=== PATIENT | male | born 1950 | race Caucasian/White ===

== ENCOUNTER → 2023-04-20 13:54 | Outpatient (CLI) | payer MEDICARE, SELFPAY ==
--- NOTE | 2023-04-20 13:56 | DI.RAD.S_ITS ---
PROCEDURE: XR KUB INDICATIONS: Kidney stones TECHNIQUE: One view of the abdomen acquired. COMPARISON: [facility], , US RENAL, 01/24/2023, 16:24. FINDINGS: Surgical changes and devices: Cholecystectomy clips. Bowel: There are occasional air-fluid levels in nondilated bowel loops. There is a normal amount of stool in the transverse colon overlying renal shadows. No significant rectal obstipation. No dilated small bowel loops. Soft tissues: Questionable tiny calcification projecting over the expected location of the left kidney. No significant retroperitoneal or pelvic calcifications. No suspicious abdominal calcifications. Visualized solid organ contours appear normal in size. Bones: Moderate levoscoliosis and degenerative endplate spurring. IMPRESSION: 1. Questionable left lower pole renal calculus versus stool contents. 2. No significant urinary calcification identified though one could potentially be obscured by stool. Dictated by: Nancy Hammond M.D. on 04/20/2023 at 23:41 Approved by: Nancy Hammond M.D. on 04/20/2023 at 23:44
== END ==
PROVIDERS: PCP Family Medicine; Referring Provider Urology; Visit Provider Urology
DX: N20.0 Calculus of kidney (principal); R39.9 Unspecified symptoms and signs involving the genitourinary system; R39.14 Feeling of incomplete bladder emptying; Z87.442 Personal history of urinary calculi
CPT/HCPCS: 51798; 74018; 99213

== ENCOUNTER 2023-07-31 07:40 | Day surgery (SDC) | payer MEDICARE, SELFPAY ==
[2023-07-30 12:31] VITALS: BMI 30.9
[2023-07-31 08:18] VITALS: BMI 30.9
--- NOTE | 2023-07-31 08:23 | PM.PREOP ---
Pre-operative Note COVID-19 COVID-19 status: Not tested Interval Note History & Physical reviewed/Exam performed by Physician: Yes Changes to H&P: No
[2023-07-31] MEDS: LACTATED RINGERS 1,000 ML 21 ML IV (08:29)
[2023-07-31] MEDS: CEFAZOLIN 2 GM/100 ML PREMIX 100 ML IV (08:48)
--- NOTE | 2023-07-31 09:08 | SUR.OPER ---
Addendum entered by Anette Berg R.N. 07/31/23 09:09: Several warm blankets place on patient intraoperative for warming. Original Note: Lithotomy on padded OR bed, head on pillow, arms secured on padded arm boards at <90 degrees abduction. Legs secured in padded yellow fins stirrups.
--- NOTE | 2023-07-31 09:36 | P.OP_ITS ---
Procedure & Clinicians Procedure: Left extracorporeal shockwave lithotripsy with cystoscopy and left ureteral stent placement. Same procedure as scheduled: Yes Indications: This 72-year-old gentleman presented with complaints of hematuria was found to have a left-sided stone and presents this time for treatment of his left-sided stone. Surgeon: Lb Razo Click Yes if Unassisted: Yes Anesthesia Type: General Operative Notes Findings: Findings: Urethral meatus is normal, urethra is normal along its length with no rmal mucosa sphincter as well coapted, the prostate exhibits moderate obstructive character. Ureteral orifices in normal position with clear efflux. The bladder exhibits moderate trabeculation. There are no other mucosal lesions. The 7 [place] by multi length stent was left in good position with no string attached. There were no other abnormalities noted. The stone received 2000 shocks at level 7 and appeared to fragment quite well. Closure Type: not applicable Specimen(s): none sent Prosthetic devices, grafts, tissues, transplants, or devices: Seven [place] by multi length stent left collecting system no string Estimated Blood Loss (mL): 0 Procedure in detail: Procedure in detail: After informed consent was obtained, the patient was identified and brought to the operating room worries placed in supine position on the operative table. Patient then had anesthesia induced and maintained. Ensuring an adequate level of and anesthesia the patient was then transitioned to the lithotomy position where he was prepped, draped, prepared for Transurethral procedure. Ensuring an adequate level of anesthesia after prepping draping and time-out 22 [place] cystoscope was passed through the uret hra prostate and in the bladder were cystoscopy is performed. The left ureteral orifice once again identified and a hybrid wire was then passed up in the collecting system under fluoroscopic visualization. The stent was then passed over the wire and a coaxial fashion position in the renal pelvis under fluoroscopic visualization in the bladder under direct vision and the wire was removed. The grasping forceps was then inserted and the nylon harness remove the stent being left in good position. The bladder was drained the scope was removed and the stone was targeted via the imaging system were shockwave were delivered at level 7 with periodic reimaging and re localization to ensure maximal energy delivery to the stone. At 2000 shock waves the shockwave head was rotated out fluoroscopy was performed and the stone appeared well fragmented. At this point the patient was awakened having tolerated procedure well to be transferred to the postanesthesia care unit for recovery there were n o complications. Complications: none Post-operative Condition: stable Disposition: PACU Plan for aftercare: Patient is to be discharged to home to follow up in my office in 10-14 days with a KUB patient is to strain his urine and save any fragments and bring them to follow-up.
[2023-07-31 09:37] VITALS: BP 134/80; PULSE 88; RESP 15; TEMP 36.6; O2SAT 91
[2023-07-31 09:42] VITALS: BP 132/87; PULSE 83; RESP 18; O2SAT 94
[2023-07-31 09:47] VITALS: BP 135/88; PULSE 81; RESP 15; O2SAT 92
[2023-07-31 09:52] VITALS: BP 136/84; PULSE 78; RESP 11; O2SAT 92
--- NOTE | 2023-07-31 09:53 | SUR.PHASEI ---
IS provided, instructions given. Patient able to reach 2500mls.
[2023-07-31 09:58] VITALS: BP 135/77; PULSE 76; RESP 16; TEMP 36.6; O2SAT 93
== END 2023-07-31 10:12 | disposition home or self-care (01) ==
PROVIDERS: PCP Family Medicine; Referring Provider Urology; Visit Provider Urology
PROC: (CPT 50590; principal; 2023-07-31 09:15)
PROC: (CPT 50590; 2023-07-31 09:15)
DX: N20.1 Calculus of ureter (principal)
CPT/HCPCS: 50590; 52332; J0690; J1100; J2405; J2704; J3010

== ENCOUNTER → 2023-08-15 11:36 | Outpatient (CLI) | payer MEDICARE, SELFPAY ==
[2023-08-15 16:49] LABS: Appearance Urine UA CLEAR; Bilirubin Urine UA NEGATIVE (NEGATIVE); Color Urine UA YELLOW; Glucose Urine UA NEGATIVE (Negative); Ketones Urine UA NEGATIVE (NEGATIVE); Leukocyte Esterase Urine UA TRACE (NEGATIVE); Nitrite Urine UA NEGATIVE (Negative); Occult Blood Urine UA 3+ (Negative); Protein Urine UA 2+ (Negative); Urobilinogen Urine UA 0.2 E.U./dL (0.2); pH Urine UA 5.5 (4.5-8.0)
[2023-08-15 16:57] LABS: Bacteria Urine Few (2-10); Culture Indicated Urine Specimen Cultured; RBC Urine 30-100/HPF (0-5/HPF); Squamous Epithelial Cell Urine 1-5 /HPF (0-5/HPF); WBC Urine 1-5/HPF (0-5/HPF)
[2023-08-24 12:06] LABS: Ca oxalate monohydr 20 % (.); Carbonate Apatite 10 % (.); Magnesium ammon phos 70 % (.); Size <1 mm (.)
== END ==
PROVIDERS: PCP Family Medicine; Visit Provider Urology
DX: N20.0 Calculus of kidney (principal); R30.0 Dysuria; R39.14 Feeling of incomplete bladder emptying; R39.9 Unspecified symptoms and signs involving the genitourinary system; Z87.442 Personal history of urinary calculi; Z98.890 Other specified postprocedural states
CPT/HCPCS: 81001; 81002; 82365; 87086

== ENCOUNTER → 2023-08-29 09:58 | Outpatient (CLI) | payer MEDICARE, SELFPAY | PROVIDERS: PCP Family Medicine; Visit Provider Urology | DX: N20.0 Calculus of kidney (principal); R39.14 Feeling of incomplete bladder emptying; R39.9 Unspecified symptoms and signs involving the genitourinary system; Z98.890 Other specified postprocedural states | CPT/HCPCS: 52310; 81002; 87077; 87086; 87185; 87186 ==

== ENCOUNTER 2024-08-21 08:07 | Outpatient (CLI) | payer MEDICARE, SELFPAY ==
[2024-08-21] VITALS (7 sets, daily range): BP systolic 134–151; BP diastolic 82–94; PULSE 84–88; RESP 12–22; TEMP 36.6; O2SAT 96–98
--- NOTE | 2024-08-21 08:45 | DI.RAD.S_ITS ---
PROCEDURE: PAIN L INTERLAMINAR/CAUDAL INJ INDICATIONS: PARA RIGHT L 4/5 TL HAZEL COMPARISON: None. FINDINGS: Fluoroscopic spot filming was performed to verify placement of spinal needles at the L4-5 level(s), as labeled on the films. Appropriate location(s) of the needle tip(s) was confirmed by injection of iodinated contrast. IMPRESSION: Fluoro guidance was provided intraoperatively for right L4-5 TL HAZEL performed by ordering physician. Dictated by: Mike Mckeon M.D. on 08/21/2024 at 16:34 Approved by: Mike Mckeon M.D. on 08/21/2024 at 16:35
[2024-08-21] MEDS: MIDAZOLAM 2 MG/2 ML VIAL 1 MG IV (09:59)
[2024-08-21] MEDS: BETAMETHASONE 30 MG/5 ML MDV 12 MG INJ (10:04)
[2024-08-21] MEDS: DEXAMETHASONE 10 MG/ML VIAL INJ (10:04)
[2024-08-21] MEDS: iopamidoL 15 ML VIAL 3 ML INJ (10:05)
[2024-08-21] MEDS: BUPIVACAINE 0.25% (PF) VIAL 2 ML INJ (10:05)
--- NOTE | 2024-08-21 10:10 | P.PCN_ITS ---
Date/Time/Diagnoses Date of procedure: 08/21/24 Time of procedure: 10:10 Pre-procedure diagnosis: 1. HNP WITH RADICULAR FEATURES, 2. MULTILEVEL CENTRAL STENOSIS, Post-procedure diagnosis: same Procedure Notes Procedure: 1. FLUOROSCOPICALLY GUIDED CONTRAST CONTROLLED INTERLAMINAR EPIDURAL STEROID INJECTION -L4/5 Indications: Patrick is referred by Dr. Back for treatment of Bilateral Foraminal Stenosis R>L LE symptoms. Physician: Dhaval Peter Total Fluoroscopy time (seconds): 10 Total sedation minutes: 7 Complications: none Procedure in detail & Post-procedure care: FINDINGS Multilevel Central Spinal Stenosis with Nerve Root Compression DESCRIPTION OF PROCEDURE Fluoroscopically guided, contrast-controlled L4/5 translaminar epidural steroid injection. Following review of allergy and review of potential side effects and complications, including, but not necessarily limited to, infection, allergic reaction, local tissue breakdown, temporary as well as permanent nerve injury, paralysis, stroke and possible , the patient indicated that the patient understood and agreed to proceed. An informed consent document was signed by the patient, witnessed by a nurse, and placed in the patient's chart. Additionally, other treatment options including modalities, medications, and physical therapy were reviewed with the patient. After review of previous anaesthesic history and IV conscious sedation the patient was deemed safe to proceed with today?s procedure with IV conscious sedation as ASA class II designation. Safety time-out was performed to confirm patient ID, procedure to be performed and site of procedure. IV sedation was accomplished with a combination of 1mg of Versed was administered by the RN after DO order, titrated to patient comfort during the course of the procedure while the patient remained responsive to all verbal commands In the prone position, following sterile prep and drape of the lumbar region, the L4/5 translaminar space was identified fluoroscopically. The skin was anesthetized via a 25-gauge, 1.5inch needle with 1% lidocaine solution. At this point, a 22-gauge short bevel spinal needle was atraumatically introduced and ad vanced under fluoroscopic guidance into the region of the L4/5 translaminar space. Depth was confirmed on lateral view. Radiological data, including multiple fluoroscopic views of the lumbar spine, reveal a spinal needle at the L4/5 translaminar space. Lateral views then show placement of the needle in the epidural space. Subsequent views show contrast material flowing superiorly and inferiorly in the epidural space. No vascular or intrathecal uptake is observed. At this point, using loss of resistance technique with saline and air, the epidural space was entered. This was confirmed following negative aspiration with injection of approximately 1.5cc of Isovue 200, showing excellent epidural flow without vascular or intrathecal uptake. At this point, 1cc of 1% lidocaine solution combined with 2cc or 10mg of dexamethasone and 6mg betamethasone was injected without incident. The patient tolerated the procedure well without signs or symptoms of complications prior to transfer to the recovery area continued monitoring without incident. The patient was then transferred to the recovery area where they were observed for an appropriate period of time after the injection. The patient reported a VAS score of 6 prior to the procedure and a post- procedure VAS of 0. POST OP INSTRUCTIONS The patient was provided a Pain Log to continue to record their response to the target-specific procedure prior to follow-up visit with their referring physician. Additionally, specific post-injection care instructions and a contact number to our office were provided if concerns arise regarding possible complications associated with the procedure are suspected.
--- NOTE | 2024-08-21 10:41 | P.PCN_ITS ---
Date/Time/Diagnoses Date of procedure: 08/21/24 Time of procedure: 10:41 Pre-procedure diagnosis: 1. CERVICAL STENOSIS, 2. CERVICAL HNP WITH UPPER EXTREMITY RADICULAR FEATURES Post-procedure diagnosis: same Procedure Notes Procedure: 1. FLUORSCOPICALLY GUIDED CONTRAST CONTROLLED INTERLAMINAR EPIDURAL STEROID INJECTION - C6/7 TL HAZEL Indications: Patrick is referred by Dr. Back for treatment of Cervical HNP with Upper Extremity Paresthesias. Physician: Dhaval Peter Total Fluoroscopy time (seconds): 21 Total sedation minutes: 14 Complications: none Procedure in detail & Post-procedure care: FINDINGS Cervical Stenosis due to disc deterioration and nerve root irritation and nerve root irritation DESCRIPTION OF PROCEDURE Fluoroscopically guided, contrast-controlled C6/7 translaminar epidural steroid injection with conscious sedation. Following review of allergy and review of potential side effects and complications, including, but not necessarily limited to, infection, allergic reaction, local tissue breakdown, temporary as well as permanent nerve injury, stroke, paralysis, and possible , the patient indicated that patient understood and agreed to proceed. An informed consent document was signed by the patient, witnessed by a nurse, and placed in the patient's chart. Additionally, other treatment options including modalities, medications, and physical therapy were reviewed with the patient. After review of previous anaesthesic history and IV conscious sedation the patient was deemed safe to proceed with today?s procedure with IV conscious sedation as ASA class II designation. Safety time-out was performed to confirm patient ID, procedure to be performed and site of procedure. IV sedation was accomplished with a combination of 2mg of Versed administered by the RN after DO order, titrated to patient comfort during the course of the procedure while the patient remained responsive to all verbal commands. In the prone position, following sterile prep and drape of the cervical region, the C6/7 translaminar space was identified fluoroscopically. The skin was anesthetized via a 25-gauge 1.5-inch needle with 1% lidocaine solution. At this point, a 25-gauge, 2.5-inch short bevel spinal needle was atraumatically introduced and advanced under fluoroscopic guidance into epidural space at the C6/7 translaminar space. Depth was confirmed on lateral view. Radiological data, including multiple fluoroscopic views of the cervical spine, reveal a spinal needle at the C6/7 translaminar space. Lateral views then show placement of the needle in the epidural space. Subsequent views show contrast material flowing superiorly and inferiorly in the epidural space. DSA fluoroscopy with live contrast injection, once again, confirmed no vascular or intrathecal uptake. At this point, using loss of resistance technique with saline and air, the epidural space was entered. Following negative aspiration, injection of approximately 1.5 cc of Isovue-200 with live fluoroscopy in the AP view confirmed epidural flow in the epidural space without vascular or intrathecal uptake observed. Subsequently, a test dose of 1 cc of 1% lidocaine solution was injected and patient was observed for two minutes without signs or symptoms of complications, including abdominal pain, shortness of breath, bilateral upper or lower extremity weakness, nausea and vomiting, prior to steroid injection. At this point, 2cc or 20mg of dexamethasone was then injected without incident. The patient tolerated the procedure well without signs or symptoms of complic ations prior to being transferred to the recovery area for further monitoring, The patient was then transferred to the recovery area where they were observed for an appropriate period of time after the injection. The patient reported a VAS score of 6 prior to the procedure and a post-procedure VAS of 0. POST OP INSTRUCTIONS The patient was provided a Pain Log to continue to record their response to the target-specific procedure prior to follow-up visit with the referring provider. Additionally, specific post-injection care instructions and a contact number to our office were provided if concerns arise regarding possible complications associated with the procedure are suspected.
== END 2024-08-21 10:26 | disposition home or self-care (01) ==
LOC: RAD 08:07
PROVIDERS: PCP Family Medicine; Referring Provider Physical Medicine & Rehabilitation; Visit Provider Physical Medicine & Rehabilitation
DX: M51.16 Intervertebral disc disorders with radiculopathy, lumbar region (principal); M48.061 Spinal stenosis, lumbar region without neurogenic claudication
CPT/HCPCS: 62323; J0702; J1100; J2250; J3490

== ENCOUNTER → 2024-09-15 11:40 | Outpatient (CLI) | payer MEDICARE, SELFPAY ==
--- NOTE | 2024-09-15 11:42 | DI.RAD.S_ITS ---
PROCEDURE: XR KUB INDICATIONS: Follow-up history of kidney stones TECHNIQUE: One view of the abdomen acquired. COMPARISON: [facility], CR, XR KUB, 04/20/2023, 13:56. FINDINGS: Surgical changes and devices: Cholecystectomy clips. Bowel: Bowel gas pattern is normal. Soft tissues: No suspicious abdominal calcifications. Visualized solid organ contours appear normal in size. Bones: No suspicious bony lesions. IMPRESSION: No calcifications are identified overlying the renal shadows. Dictated by: Crys Bradley M.D. on 09/15/2024 at 16:32 Approved by: Crys Bradley M.D. on 09/15/2024 at 16:34
--- NOTE | 2024-09-15 11:42 | DI.RAD.S_ITS ---
PROCEDURE: XR HIP W PEL IF DONE VLADIMIR MIN 4V INDICATIONS: BILATERAL HIP PAIN TECHNIQUE: AP pelvis with lateral view(s) of the bilateral hip(s). COMPARISON: None. FINDINGS: Bones: No fractures or dislocations. Moderate left hip joint osteoarthritis and [id number] right hip joint osteoarthritis is seen. No evidence of avascular necrosis of femoral head. Pelvic ring appears intact. No suspicious bony lesions. Degenerative disc disease in visualized lower lumbar spine is seen. Soft tissues: The visualized bowel gas pattern is normal. No suspicious soft tissue calcifications. IMPRESSION: Left worse than right bilateral hip joint osteoarthritis. No pelvic or hip fracture. No evidence of avascular necrosis. Dictated by: Mike Mckeon M.D. on 09/15/2024 at 12:17 Approved by: Mike Mckeon M.D. on 09/15/2024 at 12:18
--- NOTE | 2024-09-15 11:42 | DI.RAD.S_ITS ---
PROCEDURE: XR LUMBAR SPINE MIN 4V INDICATIONS: BILATERAL HIP PAIN/BACK PAIN TECHNIQUE: 5 views of the lumbar spine were acquired, including bilateral oblique views. COMPARISON: Outside Facility, CR, XR LUMBAR SPINE MIN 4V, 07/09/2024, 14:57. FINDINGS: Bones: 5 nonrib-bearing vertebrae are present. There is [id number] levoscoliosis of thoracolumbar spine with apex at L1-2 level. Degenerative endplate changes are noted throughout lumbar spine.. No vertebral body compression fractures. No suspicious bony lesions. Soft tissues: Overlying bowel gas pattern is normal. No suspicious soft tissue calcifications. Oblique images: No pars defects. IMPRESSION: Moderate degenerative disc disease throughout lumbar spine. [id number] levoscoliosis as above. No acute compression fracture. No gross pars defect seen on oblique views. Dictated by: Mike Mckeon M.D. on 09/15/2024 at 12:18 Approved by: Mike Mckeon M.D. on 09/15/2024 at 12:19
[2024-09-15 13:36] LABS: Prostate Specific Antigen Scrn 1.97 ng/mL (0.1-4.0)
== END ==
PROVIDERS: Urology; PCP Family Medicine; Referring Provider Physical Medicine & Rehabilitation; Visit Provider Physical Medicine & Rehabilitation
DX: M48.062 Spinal stenosis, lumbar region with neurogenic claudication (principal); M41.9 Scoliosis, unspecified; M16.0 Bilateral primary osteoarthritis of hip; M51.16 Intervertebral disc disorders with radiculopathy, lumbar region; M25.551 Pain in right hip; M25.552 Pain in left hip; Z12.5 Encounter for screening for malignant neoplasm of prostate; Z87.442 Personal history of urinary calculi; Z98.890 Other specified postprocedural states
CPT/HCPCS: 72110; 73522; 74018; 99213; G0103

== ENCOUNTER 2024-11-04 10:44 | Outpatient (CLI) | payer MEDICARE, OTHER, SELFPAY ==
[2024-11-04] VITALS (9 sets, daily range): BP systolic 130–160; BP diastolic 69–89; PULSE 87–98; RESP 13–22; TEMP 36.4; O2SAT 95–98
--- NOTE | 2024-11-04 10:45 | DI.RAD.S_ITS ---
PROCEDURE: PAIN L/S TRANSFORAM INJECT VLADIMIR COMPARISON: None. INDICATIONS: Bilateral L4-5 transforaminal HAZEL FINDINGS: Intraoperative fluoroscopy provided for bilateral transforaminal HAZEL at the L4-5 level. There is appropriate position needles and confirmation with needle position by injection of trace amount contrast. IMPRESSION: Intraoperative fluoroscopy for bilateral L4-5 transforaminal HAZEL. Dictated by: Nancy Hammond M.D. on 11/04/2024 at 18:35 Approved by: Nancy Hammond M.D. on 11/04/2024 at 18:36
[2024-11-04] MEDS: MIDAZOLAM 2 MG/2 ML VIAL IV (13:51)
[2024-11-04] MEDS: BETAMETHASONE 30 MG/5 ML MDV 12 MG INJ (13:54)
[2024-11-04] MEDS: BUPIVACAINE 0.25% (PF) VIAL 2 ML INJ (13:55)
[2024-11-04] MEDS: iopamidoL 15 ML VIAL 3 ML INJ (13:55)
[2024-11-04] MEDS: DEXAMETHASONE 10 MG/ML VIAL INJ ×2 (13:57→13:58)
--- NOTE | 2024-11-04 14:06 | PM.PROC.IR.1 ---
Date/Time/Diagnoses Date of procedure: 11/04/24 Time of procedure: 14:06 Pre-procedure diagnosis: 1. FORAMINAL STENOSIS WITH LE SYMPTOMS Procedure Notes Procedure: 1. FLUOROSCOPICALLY GUIDED CONTRAST CONTROLLED TRANSFORAMINAL EPIDURAL STEROID INJECTION - BILATERAL L4/5 TFESI Indications: Patrick is referred by Dr. Back for treatment of Foraminal Stenosis with bilateral LE Symptoms Physician: Dhaval Peter Total Fluoroscopy time (seconds): 11 Total sedation minutes: 12 Complications: none Procedure in detail & Post-procedure care: FINDINGS Foraminal Nerve Root Compression secondary to disc disease and facet hypertrophy DESCRIPTION OF PROCEDURE Following review of allergy and review of potential side effects and complications, including, but not necessarily limited to, infection, allergic reaction, local tissue breakdown, stroke, temporary or permanent nerve injury, paralysis, and possible , the patient indicated that the patient understood and agreed to proceed. An informed consent document was signed by the patient, witnessed by a nurse, and placed in the patient's chart. Additionally, other treatment options including medications, modalities, and physical therapy were reviewed with the patient. After review of previous anaesthesic history and IV conscious sedation the patient was deemed safe to proceed with today?s procedure with IV conscious sedation as ASA class II designation. Safety time-out was performed to confirm patient ID, procedure to be performed and site of procedure. IV sedation was accomplished with a combination of 2mg of Versed was administered by the RN after DO order, titrated to patient comfort during the course of the procedure while the patient remained responsive to all verbal commands In the prone position following sterile prep and drape of the lumbar region, the right L4/5 posterior neuroforamen was identified fluoroscopically. The skin was anesthetized via a 25-gauge 1.5-inch needle with 1% lidocaine solution. At this point, a 25-gauge 3.5-inch spinal needle was atraumatically introduced and advanced under fluoroscopic guidance through the posterior right L4/5 neuroforamen to approximately the anterior aspect of the canal. Depth was confirmed on lateral view. Following negative aspiration, injection of approximately 1.5cc of Isovue 200 under live fluoroscopy in the AP view confirmed excellent flow along the nerve root, into the epidural space without vascular or intrathecal uptake observed Radiological data, including multiple fluoroscopic views of the lumbosacral spine, reveal a spinal needle at the right L4/5 posterior neuroforamen. Subsequent views show flow of contrast material flowing superiorly and inferiorly along the nerve root confirming epidural flow. Subsequently, a test dose of 1.5cc of 1% lidocaine solution was administered and patient was observed for two minutes for signs or symptoms of complications, including abdominal pain, shortness of breath, bilateral upper or lower extremity weakness, nausea and vomiting, prior to steroid injection. At this point, a total of 2cc or 10mg of dexamethasone and 6mg betamethasone was injected without incident. Attention was then refocused to the left L4/5 level where the identical procedure was replicated. The procedure tolerated the procedure well without signs or symptoms of complications prior to transfer to the recovery area continued monitoring without incident. The patient was then transferred to the recovery area where they were observed for an appropriate time after the injection. The patient reported a VAS score of 7 prior to the procedure and a post-procedure VAS of 0. POST OP INSTRUCTIONS The patient was provided a Pain Log to continue to record their response to the target-specific procedure prior to follow-up visit with their referring physician. Additionally, specific post-injection care instructions and a contact number to our office were provided if concerns arise regarding possible complications associated with the procedure are suspected.
== END 2024-11-04 14:26 | disposition home or self-care (01) ==
LOC: RAD 10:45
PROVIDERS: PCP Family Medicine; Referring Provider Physical Medicine & Rehabilitation; Visit Provider Physical Medicine & Rehabilitation
DX: M48.061 Spinal stenosis, lumbar region without neurogenic claudication (principal); M51.16 Intervertebral disc disorders with radiculopathy, lumbar region; M47.26 Other spondylosis with radiculopathy, lumbar region
CPT/HCPCS: 64483; 99152; J0702; J1100; J2250; J3490

== ENCOUNTER → 2025-05-05 09:40 | Outpatient (CLI) | payer MEDICARE, OTHER, SELFPAY ==
--- NOTE | 2025-05-05 09:42 | DI.MRI.S_ITS ---
PROCEDURE: MR LUMBAR SPINE WO CON INDICATIONS: SPINAL STENOSIS TECHNIQUE: Noncontrast sagittal T1 spin echo and T2 fast echo, sagittal STIR, and T2 fast spin echo through the lumbar spine. In cases with scoliosis, additional coronal T2 fast spin echo may be performed. COMPARISON: [facility], CR, XR LUMBAR SPINE MIN 4V, 09/15/2024, 11:43. Outside Film, MR, MR LUMBAR SPINE WITHOUT CONTRAST, 03/15/2024, 10:26. FINDINGS: Image quality: Excellent. Alignment and Curvature: There is normal bony alignment. Mild convex left scoliosis of the lumbar spine. Bone Marrow: Modic type 2 reactive endplate changes adjacent to the L1-L2, L2- L3 and L5-S1 discs. Mixed Modic type 1-2 reactive endplate changes adjacent to the L4- L5 disc. reactive endplate changes No acute vertebral body compression fractures. Spinal Cord: Conus medullaris terminates at the L1-2 disc level. Visualized cord demonstrates normal signal and size. Paraspinous Soft Tissues: No paravertebral masses. T12-L1: Loss of disc signal and height. Mild, diffuse disc bulge. Small right central disc protrusion. Small left foraminal disc protrusion Mild narrowing of the central canal. Mild left neural foraminal narrowing. No neural compression. L1-L2: Loss of disc signal and height. Mild, diffuse disc bulge. Moderate- sized right central disc protrusion. Mild narrowing of the central canal. Moderate right neural foraminal narrowing. No neural compression. L2-L3: Loss of disc signal and height. Moderate, diffuse disc bulge. Moderate narrowing of the central canal. Kwsn-ju-urlrrrwn right and mild left neural foraminal narrowing. No neural compression. L3-L4: Loss of disc signal and mild loss of disc height. Moderate, diffuse disc bulge. Mild bilateral facet hypertrophy. Severe narrowing of the central canal with mild compression of the nerve roots of the cauda equina. Mild to moderate bilateral neural foraminal narrowing. L4-L5: Loss of disc signal and height. Mild, diffuse disc bulge. Mild bilateral facet hypertrophy. Mild narrowing of the central canal. Mild right and severe left neural foraminal narrowing with compression of the left L4 nerve root. L5-S1: Loss of disc signal and height. Mild, diffuse disc bulge. Mild bilateral facet hypertrophy. No central stenosis. Moderate bilateral neural foraminal narrowing. No neural compression. IMPRESSION: Mild convex left scoliosis. Multilevel degenerative disc disease. Multilevel facet arthropathy. Severe L3-L4 central canal stenosis with compression of the nerve roots of the cauda equina. Severe left L4-L5 neural foraminal stenosis with compression of the left L4 nerve root. Dictated by: Ivanna Browne MD, PhD on 05/05/2025 at 11:31 Approved by: Ivanna Browne MD, PhD on 05/05/2025 at 11:36
== END ==
LOC: MRI 09:41
PROVIDERS: PCP Family Medicine; Referring Provider Orthopaedic Surgery Orthopaedic Surgery of the Spine; Visit Provider Orthopaedic Surgery Orthopaedic Surgery of the Spine
DX: M48.062 Spinal stenosis, lumbar region with neurogenic claudication (principal); M51.369 Other intervertebral disc degeneration, lumbar region without mention of lumbar back pain or lower extremity pain; M51.379 Other intervertebral disc degeneration, lumbosacral region without mention of lumbar back pain or lower extremity pain; M47.816 Spondylosis without myelopathy or radiculopathy, lumbar region; M47.817 Spondylosis without myelopathy or radiculopathy, lumbosacral region; M41.9 Scoliosis, unspecified
CPT/HCPCS: 72148